=== PATIENT | female | born 1975 | race Caucasian/White ===

== ENCOUNTER 2019-11-21 06:39 | Emergency (ER) | payer OTHER, SELFPAY ==
[2019-11-21 06:40] VITALS: BP 140/84; PULSE 82; RESP 16; TEMP 36.4; O2SAT 97; BMI 36.9
--- NOTE | 2019-11-21 07:12 | RAD_ITS ---
STUDY: X-RAY - PELVIS AND LEFT HIP REASON FOR EXAM: Left hip pain, fell Wednesday. TECHNIQUE: 2 views of the pelvis and hip. COMPARISON: None. FINDINGS: There is a small pelvic phlebolith. There is mild arthrosis of the sacroiliac joints bilaterally. Normal bilateral iliac wings and visualized sacrum. Normal bilateral superior and inferior pubic rami. Normal pubic symphysis. Normal bilateral ischial tuberosities. Normal visualized femoral head. Normal acetabulum. There are marginal osteophytes and moderate joint space narrowing of the hip joint. There is a left os acetabula. RAD/HIP, UNI W/ Pelvis 2-3 Views IMPRESSION: Left hip arthrosis. Mild arthrosis of the sacroiliac joints bilaterally. If symptoms are persistent, an MRI should be considered to evaluate for occult fracture. Electronically Signed: Rashid Sweeney MD at 7:48 EST Tel , Service support ,
--- NOTE | 2019-11-21 07:48 | ED.VISSUMM ---
- ER Visit Summary Date of Service: 11/21/19 Chief Complaint: [Left hip and leg pain] History of Present Illness: The patient is a 44 F [presents to the emergency department complaint of pain in her left hip and leg that started this morning.] Patient states that she did have a fall off of a chair while at work 5 days ago where the chair kind of went [address] she tried to stand up and she fell onto her bottom. At the time she did not think much of it. Today she is having pain with walking. She describes the pain is in her left buttock and, radiates down the back of her leg to about the knee. She denies any numbness or tingling or weakness of the extremity. She denies weakness in the extremity and she denies loss of bowel or bladder function. She denies saddle anesthesia. Patient states that she is had intermittent pain in her left buttock and leg that she just attributed to sciatica in the past. Patient otherwise has no medical history. Physical Examination: [HEENT-PERRLA, EOMI. Cranial nerves II through XII grossly intact. TMs clear. Mucous membranes moist. No adenopathy. Cardiovascular-regular rate and rhythm without murmur or ectopy Lungs-clear to auscultation, chest wall stable without crepitus or subcu emphysema Abdomen-normoactive bowel sounds, soft, nontender, no rebound or rigidity, no peritoneal signs. Back exam-patient has no tenderness over the thoracic or lumbar spine. There is no ecchymosis or bruising noted. Evaluation of the left hip reveals some mild diffuse tenderness over the left hip and left buttock. She has negative straight leg raises. Deep tendon reflexes are plus 2 out of 4 bilaterally at the patella and Achilles. Patient has normal 5 extension bilaterally. Patient has normal sensation to light touch. Extremities-intact ?4, normal range of motion, normal pulses, atraumatic] Test Results: [X-rays of the left hip and pelvis ordered which showed no fractures however she did have some left hip arthrosis and mild arthrosis of the sacroiliac joints bilaterally.] Emergency Department Course and Treatment: [] Treatment Plan: [Patient will be given crutches and a prescription for [place] for pain. Patient advised to follow-up with her primary care physician within next 5 to 7 days. Patient advised to return if worsening pain, weakness in extremity, change in bowel bladder function, or conditions worsen anyway. At this time patient has no red flag symptoms for cauda equina.] Disposition: [Discharged home in stable condition] Impression: [Left hip pain] This note was generated with [employer] dictation software. It may contain incorrect words, spelling, and punctuation that were not noted in review of the chart prior to signing ED Disposition - Plan for ED Patient: Referrals: Naomi El MD [Primary Care Provider] -
--- NOTE | 2019-11-21 07:55 | ED.DEP ---
ED Disposition - Plan for ED Patient: Instructions: Hip Strain Prescriptions: Hydrocodone Bitart/Apap 5-325 [[place] 5MG-325MG] 1 tab PO Q4H PRN PRN 2 Days #14 tab PRN Reason: Pain Prescription Printed Referrals: Naomi El MD [Primary Care Provider] - 5-7 Days
== END 2019-11-21 08:42 | disposition home or self-care (01) ==
PROVIDERS: Emergency Provider Emergency Medicine; PCP Internal Medicine
DX: M16.12 Unilateral primary osteoarthritis, left hip (principal); M25.552 Pain in left hip; Z79.899 Other long term (current) drug therapy
CPT/HCPCS: 73502; 99282

== ENCOUNTER 2020-06-01 18:04 | Emergency (ER) | payer OTHER, SELFPAY ==
[2020-06-01 18:05] VITALS: BP 180/84; PULSE 96; RESP 16; TEMP 37; BMI 57.0
--- NOTE | 2020-06-01 18:53 | ED.VIS.INJ ---
History of Present Illness Chief Complaint: Fall Informant: Patient Onset: Today Mechanism/Context: Fall Quality of Pain: - - sore Location: R thumb Current Severity: Mild Maximum Severity: Moderate Worsened by: Palpation Relieved by: Leaving, Associated Symptoms: Loss of function. Negative for: Parasthesias, Weakness, Inability to ambulate, Loss of consciousness, Amnesia Narrative: Patient accidentally fell through a weekend composite board on the floor of a deck. She scraped her left leg as she was going through, but it does not hurt and she is able to walk without difficulty. The deck was just off the ground and not elevated high. Worst injury is to her right thumb, she tried to break her fall by grabbing something nearby, and it tore a laceration. It was metal. Now she is having trouble bending her thumb. [id number]. Tetanus Immunization: Unknown - Past Medical History (1) Hypertension Status: Chronic Past Medical History - Allergies and Home Meds Allergies/Adverse Reactions: Allergies No Known Allergies Allergy (Verified 11/21/19 06:44) Primary Care Physician: Josse Pastrana MD [STAFF PHYSICIAN] - (call for appt to be seen as soon as able) Lives: With Family Smoking Status: Never smoker Review of Systems General: Denies: Chills, Fever, Sweats Eyes: Denies: Visual changes - bilaterally, Diplopia ENT: Denies: Rhinorrhea, Sore throat Cardiovascular: Denies: Chest pain, Palpitations Respiratory: Denies: Dyspnea, Cough, Dyspnea on exertion Gastrointestinal: Denies: Abdominal pain, Nausea, Vomiting, Diarrhea, Melena, Hematochezia Genitourinary: Denies: Dysuria, Hematuria, Frequency Musculoskeletal: Reports: Extremity Pain. Denies: Back pain Skin: Reports: Abrasions, Wounds. Denies: Rash Neurological: Denies: Headache, Weakness, Numbness Physical Exam Vital Signs/Narrative: Vital Signs Temp Pulse Resp BP 06/01/20 18:05 98.6 F 96 16 180/84 H Inital Vital Signs reviewed: Yes General: Well nourished, Well developed Head: Normocephalic, Atraumatic Eyes: Perrl, EOMI Neck: Nontender, Full ROM Extremeties: Laceration to the IPJ of the right thumb volar aspect. She is not able to flex the distal phalanx. Extensor mechanism intact. No other injuries to the hand. Full range of motion to the left lower extremity without any bony tenderness. Skin: Normal color, Trauma - 2 cm deep irregular laceration to the volar aspect of the right thumb IPJ. No gross contamination. No nail involvement. Superficial abrasions to the left knee, and proximal/distal to this. Neurological: Alert, Oriented x3, Cranial nerves II-XII grossly intact, Normal Strength, Normal Sensation Psychological: Normal affect, Normal Mood - Glascow Coma Scale Eye Opening: Spontaneous Motor: Obeys Commands Verbal: Oriented Coma Scale Total: 15 Diagnostic/Tx/Re-eval Clinical Impression(s) from Imaging Studies Finger X-Ray 06/01/20 19:12 IMPRESSION: Normal x-ray examination of the thumb. Electronically Signed: Alberto Peterson MD at 19:46 EDT , Service support , - Medical Decision Making Patient had a negative x-ray, however clinically she has lacerated her flexor tendon to her thumb as she cannot bend it at all. I explored the wound, I was not able to obviously see the tendon, nor the bone. Just subcutaneous fat/tissue. It was cleansed thoroughly, repaired/closed, and she was placed in a thumb spica splint after dressing with bacitracin. She was given a S[place]fras for her pain, her pain was controlled well after we anesthetized it with lidocaine with epinephrine. I discussed with Dr. Pastrana who is happy to see her in follow-up after the weekend. She was given a prescription for prophylactic antibiotics in addition to some Sassafras. Laceration R thumb Length: 3 cm Depth: Tendon Shape: irregular Prep: Sterile Conditions, Chlorhexadine Laceration Repair: Sutures - 3cc local Irrigated (ml): 100 Number of Sutures/Adrianna: 7 Stitch Description: Ethilon, Simple, 4-0 ED Disposition - Plan for ED Patient: Disposition: Home or Assisted Living Diagnosis: Laceration of right thumb, Flexor tendon laceration of right hand with open wound Instructions: ED Laceration Hand, ED TENDON LACERATION Prescriptions: Cephalexin [Keflex] 500 mg PO TID #15 cap Prescription Printed Hydrocodone Bitart/Apap 5-325 [[place] 5MG-325MG] 1 tab PO Q4H PRN PRN 2 Days #10 tab PRN Reason: Pain Prescription Printed Referrals: Josse Pastrana MD [STAFF PHYSICIAN] - (call for appt to be seen as soon as able)
[2020-06-01] MEDS: Lidocaine/Epi/Tetracaine 50 ML 1 APPLIC TOPICAL (19:09)
[2020-06-01] MEDS: Diphth,Pertuss(Acell),Tet Vac 0.5 ML Vial IM (19:09)
--- NOTE | 2020-06-01 19:12 | RAD_ITS ---
STUDY: X-RAY - RIGHT HAND, ATTENTION FIRST FINGER REASON FOR EXAM: Female, 44 years old. fall, laceration of first digit TECHNIQUE: 3 view(s) of the finger were obtained. COMPARISON: None. FINDINGS: Normal metacarpal head. Normal metacarpophalangeal joint. Normal proximal phalanx. Normal distal phalanx. Normal interphalangeal joint. No fractures. No foreign bodies. RAD/Finger(s) Min 2 Views IMPRESSION: Normal x-ray examination of the thumb. Electronically Signed: Alberto Peterson MD at 19:46 EDT , Service support ,
[2020-06-01 20:58] VITALS: RESP 16
[2020-06-01] MEDS: HYDROcodone Bitartrate/Apap 5/325 Tablet PO (21:57)
[2020-06-01 22:02] VITALS: RESP 14
[2020-06-01 23:11] VITALS: PULSE 80; RESP 16; O2SAT 98
== END 2020-06-01 23:12 | disposition home or self-care (01) ==
PROVIDERS: Emergency Provider Emergency Medicine; PCP Internal Medicine
DX: S61.011A Laceration without foreign body of right thumb without damage to nail, initial encounter (principal); S80.212A Abrasion, left knee, initial encounter; W13.3XXA Fall through floor, initial encounter; Y93.9 Activity, unspecified; Y92.9 Unspecified place or not applicable; Y99.9 Unspecified external cause status; I10 Essential (primary) hypertension; Z79.899 Other long term (current) drug therapy
CPT/HCPCS: 12001; 73140; 90715; 99285

== ENCOUNTER 2020-06-04 05:51 | Day surgery (SDC) | payer OTHER, SELFPAY ==
[2020-06-04] VITALS (7 sets, daily range): BP systolic 113–131; BP diastolic 62–73; PULSE 78–85; RESP 16–18; TEMP 36.3–37; O2SAT 95–99; BMI 56.7
--- NOTE | 2020-06-04 00:12 | HP.PCM_ITS ---
History and Physical Date of Admission: 06/04/20 HISTORY OF PRESENT ILLNESS 44 year old woman was visiting family on Wednesday06/01/20 when she fell through the floor of the deck. She tried to break her fall and grabbed a piece of metal which lacerated her right thumb. She had trouble bending her right thumb and went to the ED for evaluation. She is right hand dominant. She also noted decreased sensation on the distal volar aspect of her right thumb. In the ED her wound was cleansed and suture repaired and a thumb spica splint applied. She was unable to flex her right thumb at the IP joint. X-ray was done which showed no fracture and no foreign body. She was discharged on Keflex and [place]. She presents today to discuss surgical options for treatment for her flexor tendon injury right thumb. PAST MEDICAL HISTORY Injury of digital nerve of right thumb, initial encounter Laceration of long flexor muscle, fascia and tendon of right thumb at wrist and hand level, initial encounter Laceration of right thumb with tendon involvement Fall as cause of accidental injury at home as place of occurrence High blood pressure PAST SURGICAL HISTORY 2 sections ALLERGIES No Known Allergies MEDICATIONS Hydrochlorothiazide [Hctz] Lisinopril [Zestril] Metoprolol Succinate Cephalexin [Keflex] FAMILY HISTORY Father - Hypertension CVA (cerebral vascular accident) Mother - Hypertension SOCIAL HISTORY Smoking Status: Never smoker alcohol intake: never substance use type: does not use REVIEW OF SYSTEMS General - Denies fever, fatigue, and weight loss. Eyes - Denies cataracts and glaucoma. ENT - Denies nasal congestion and sore throat. Endocrine - Denies excessive thirst and urination. Skin - Denies suspicious lesions and skin cancer. Musculoskeletal - Denies joint pain, joint stiffness, weakness of muscles and joints, back pain, and arthritis. Patient is right hand dominant. Has laceration volar surface right thumb just proximal to IP joint crease (zone 2). Neuro - Denies headaches. Has paresthesias distal volar aspect right thumb. Cardiovascular - Denies chest pain, fatigue, and shortness of breath with exertion. History of hypertension. Psych - Denies anxiety and depression. Respiratory - Denies chronic cough and shortness of breath. Gastrointestinal - Denies nausea, vomiting, diarrhea, and constipation. Hematologic - Denies abnormal bruising and bleeding. Genitourinary - Denies hematuria and urinary frequency. Had 2 c-sections. PHYSICAL EXAMINATION General - Alert and oriented. HEENT - PERRL. EOMI. Throat is clear. Neck - Supple and non-tender. No cervical adenopathy. Lungs- Clear to auscultation. Heart - Regular rate and rhythm. Abdomen - Soft and non distended. Extremities - FROM left upper extremity. No axillary adenopathy. Radial pulses are palpable. She is right hand dominant. On the right thumb on the volar aspect just proximal to the IP joint crease is a 3 cm horizontal laceration (zone 2). She is not able to flex her thumb at the IP joint. She has decreased sensation to pin prick distal to the laceration. Sutures are dry and intact. Mild swelling present. Fingers are warm with good capillary refill. No axillary adenopathy. Neuro - CN II-XII grossly intact. Psych - Normal mood and affect. ASSESSMENT 1. 3 cm horizontal laceration volar aspect right thumb just proximal to IP joint crease (zone 2) with flexor pollicis longus (FPL) tendon injury. 2. Paresthesias distal volar aspect right thumb, probable digital nerve injuries. 3. Fall at home. PLAN X-ray reviewed. No fracture seen. No foreign body seen. Patient has laceration volar aspect right thumb just proximal to IP joint crease (zone 2) with inability to flex her right thumb at the IP joint. Clinically she has an injury to her flexor pollicis longus (FPL) tendon. She also has paresthesias on the distal volar aspect suggestive of injury to the digital nerves which travel in the area of the laceration. Recommend operative intervention with exploration of this traumatic laceration (zone 2) and repair of the FPL tendon injury. Will dissect out the digital nerves and proceed with epineural repair of any digital nerve injury. In order to get exposure, will proceed with extension of the laceration in a zig zag fashion both proximally and distally. Sometimes the FPL tendon can retract proximally toward the wrist. May have to obtain exposure through a separate incision in the distal forearm/wrist area. Will avoid a zig zag incision in the thenar eminence to minimize injury to the motor nerve branch of the median nerve and also because the tendon is deep to the thenar muscles. Because of the location of the injury just proximal to the IP joint crease, if there is an injury to the oblique jennifer, it may need repair as well. Surgery will be done on an outpatient basis under general anesthesia and tourniquet control. After surgery, will apply a thumb spica splint. She will followup with OT for a silastic splint and begin limited early range of motion protocol to minimize adhesions. Surgery is scheduled for tomorrow morning. Patient was informed of the risks and complications of the procedure including alternatives to surgery. These were discussed with the patient personally. Patient voices understanding and wishes to proceed. Some of the risks and complications were included in a form from the [employer]. We discussed the current risks associated with COVID-19. While it is understood that there is a community spread of COVID-19, the risk of rod COVID-19 while at [facility] ([facility]) is very low; however, the risk cannot be completely mitigated because of the community spread of the disease. We discussed in detail the risk of exposure to and/or potential harm posed by the COVID-19 virus with having a surgery/procedure at this time versus the risk of delaying the surgery/procedure. It is not possible to know either the risk of delaying the surgery or procedure or chance of getting an infection with perfect accuracy, but a joint decision was made to proceed at this time with the scheduled surgery/procedure as indicated on the consent form. Patient was notified that we will need to comply with any screening or testing [facility] wishes to perform or that surgery may be delayed for any positive results. Discussed with the patient that I was tested for COVID-19 on 04/18/20 which was negative and on 05/02/20 which was negative and on 05/16/20 which was negative and on 05/30/20 which was negative. My testing regimen at this time is to be COVID-19 tested every 2 weeks or so. Procedure Criteria Procedure Type: Elective COVID Risk Discussion: The surgeon/proceduralist and patient have discussed in detail the risk of exposure to and/or potential harm posed by the COVID-19 virus with having a surgery/procedure at this time versus the risk of delaying the surgery/procedure. It is not possible to know either the risk of delaying the surgery or procedure or chance of getting an infection with perfect accuracy, but a joint decision was made between the patient and the surgeon/proceduralist to proceed at this time with the scheduled surgery/procedure as indicated on the consent form.
[2020-06-04 06:12] LABS: Internal QC Validated? YES +Cl - CLEAR BKGD; Pregnancy, Urine Negative Negative
[2020-06-04] MEDS: Lactated Ringers 1,000 ML 100 ML IV ×2 (06:33→10:00)
[2020-06-04] MEDS: Cefazolin 2 GM in 0.9% Normal Saline 100 ML IV (07:50)
--- NOTE | 2020-06-04 10:26 | OP.PCM_ITS ---
Report of Operation Date of Procedure: 06/04/20 Pre-Operative Diagnosis: 1. 3 cm horizontal laceration volar aspect right thumb just proximal to IP joint crease (zone 2) with flexor pollicis longus (FPL) tendon injury. 2. Paresthesias distal volar aspect right thumb, probable digital nerve injuries. 3. Fall at home. Post-Operative Diagnosis: 1. Flexor pollicis longus (FPL) tendon laceration right thumb (zone 2). 2. Volar plate laceration IP joint right thumb. 3. Ulnar digital nerve laceration right thumb. Surgery/Procedure Performed:: 1. Repair flexor pollicis longus (FPL) tendon laceration right thumb (zone 2). 2. Repair volar plate laceration IP joint right thumb. 3. Epineural repair ulnar digital nerve laceration right thumb. Description of Surgical Findings:: 44 year old woman was visiting family on Wednesday06/01/20 when she fell through the floor of the deck. She tried to break her fall and grabbed a piece of metal which lacerated her right thumb. She had trouble bending her right thumb and went to the ED for evaluation. She is right hand dominant. She also noted decreased sensation on the distal volar aspect of her right thumb. In the ED her wound was cleansed and suture repaired and a thumb spica splint applied. She was unable to flex her right thumb at the IP joint. X-ray was done which showed no fracture and no foreign body. She was discharged on Keflex and [place]. She presents today to discuss surgical options for treatment for her flexor tendon injury right thumb. Patient was informed of the risks and complications of the procedure including alternatives to surgery. These were discussed with the patient personally. Patient voices understanding and wishes to proceed. Some of the risks and complications were included in a form from the [place] [employer]. Some of the risks and complications that were discussed included but were not inclusive of failure to diagnose including symptom relief, pain, infection, numbness, stiffness, loss of digit, RSD (CRPS), need for further surgery, contracture, and wound healing problems. Total tourniquet time - 113 minutes. The flexor pollicis longus (FPL) tendon was lacerated and retracted into the wrist. The ulnar digital nerve right thumb was lacerated. The volar plate at IP joint right thumb was lacerated. cancer genetic counselor: None Type of Anesthesia:: General Specimen's removed: None. Drains: none. Estimated Blood Loss (mL): 5 ml. Description of Procedure: Patient was taken to OR in supine position and was placed under general anesthesia. The right upper extremity was prepped and draped in the usual fashion. SCD's were placed for DVT prophylaxis. Perioperative antibiotics were given intravenously. For the procedure, I wore an N95 mask and wore proper eyewear protection. Using xylocaine with epinephrine, a digital metacarpal block was administered for postoperative pain relief. After waiting 5 minutes for the anesthetic to take effect, the right upper extremity was elevated and wrapped with an Esmarch bandage. The tourniquet was elevated to 250 mmHg. Under loupe magnification, I made zig zag incisions both proximally and distally. Dissection was carried down to the tendon sheath. The radial digital nerve was dissected free and was intact and preserved. The ulnar digital nerve was dissected free and a complete laceration was noted that will be repaired. A laceration was noted on the volar plate at the IP joint. About 2/3 of the volar plate was lacerated and it was repaired to minimize laxity in the joint. I used 3-0 Vicryl figure of eight interrupted sutures for the volar plate repair. I then evaluated the flexor tendon to the thumb. There was complete laceration of the flexor pollicis longus (FPL) tendon. I could not locate the proximal end of the tendon in the thumb area. I made a separate horizontal incision on the volar radial aspect distal forearm/wrist area at the level of the flexor carpi radialis (FCR) tendon. When I located the FCR tendon, I retracted the tendon radially and this exposed the FPL tendon located deeper to the FCR. By staying on the ulnar side of the FCR, this minimized injury to the radial artery and to the palmar sensory branch of median nerve. When I located the proximal end of the FPL tendon, I placed a tendon passer into the tendon sheath in the proximal thumb and was able to bring it out at the wrist level so I could connect the proximal end of the FPL tendon to the tendon passer so it would pass distally through the tendon sheath. When I brought it out into the thumb wound, I carefully passed it through the A1, Oblique, and A2 pulleys up to the distal end. A 25 gauge needle was used to keep the proximal end of the tendon from retracting proximally back toward the wrist. The FPL tendon was repaired with 4-0 Nylon suture using Modified Cordero technique. This was followed by 6-0 Prolene simple running epitendinous suture. After the tendon was repaired, I then repaired the ulnar digital nerve injury. I used microscopic instruments. I used an epineural repair with 8-0 Nylon simple interrupted sutures. I used 8 sutures. The wound was irrigated with saline. The tourniquet was released after 113 minutes. Hemostasis was obtained with gentle pressure and some light electrocautery. The zig zag incisions were closed in a layered fashion with 5-0 Monocryl interrupted sutures for the deep dermis and subcutaneous tissue. The skin was approximated with 5-0 Prolene simple and vertical mattress sutures. No vascular compromise was noted on the skin flaps. After skin closure, I placed antibiotic ointment on the suture line followed by Xeroform gauze and a 2 inch Whitney wap and followed by a thumb spica plaster splint with the thumb abducted and slightly flexed. A compression juan antonio wrap was then applied. Patient tolerated the procedure well and was sent to PACU in satisfactory condition. Patient will be sent home on antibiotics and pain medication and Neurontin for the nerve injury. She will keep her right hand elevated during the initial postoperative period. Patient will followup in a week for a wound check. Will set her up with OT for a silastic splint and after healing, proceed with range of motion exercises, strengthening, and edema management. The sutures will be removed in 2-3 weeks. Grafts/Implants Used: None. - Complications None. - Admit VTE Documentation VTE Present on Admission: No VTE Mechan Device Prophylaxis: SCD's VTE Pharm Prophylaxis ordered?: No Surgery Charges CPT - 81064 ICD-10 - S66.021A, S61.011A, W19.xxxA 09569 S63.438A, S61.011A, W19.xxxA 28128 S64.31xA, S61.011A, W19.xxxA
--- NOTE | 2020-06-04 10:35 | PCM.DC ---
You will use the following diet at home:: No restrictions Discharge Activity: May not drive while taking narcotic pain medications., May Shower - in one day. place plastic bag over right hand when showering., - - elevate right hand. no lifting with right hand. May shower in (days): 1 - wear plastic bag over right hand when showering. May resume sexual activity in: No Restrictions Weight Bearing Status: Weight bearing as tolerated Lifting Restrictions: no lifting with right hand. Keep extremity elevated above heart level: Right Arm Call your doctor if your incision/area has: Continuous Slow Oozing, Sudden Increased Bleeding, Increased Pain/ Swelling, Increased Redness, Foul Smelling Discharge, Swelling at the incision site Call your doctor if you observe: Fever of 101 or Higher, Coldness, Increased Pain, Shortness of breath, Chest pain, Calf discomfort, Uncontrolled pain Suture Line Care: - - after operative dressing removed in office, apply antibiotic ointment to suture line daily. Change Dressing in (Days):: 7 - will change operative dressing in office. Cleanse incision/area with: - - werart plastic bag over right hand when showering. Allergies/Adverse Reactions: Allergies No Known Allergies Allergy (Verified 06/03/20 16:06) Medications to take at Discharge Hydrochlorothiazide [Hctz] 25 mg PO DAILY 11/21/19 Lisinopril [Zestril] 10 mg PO DAILY 11/21/19 Metoprolol Succinate 50 mg PO DAILY 11/21/19 Cephalexin [Keflex] 500 mg PO TID #15 cap 06/04/20 Gabapentin [Neurontin] 300 mg PO BIDCM #60 cap 06/04/20 Oxycodone HCl/Acetaminophen [Percocet 5/325] 1 tablet PO Q4H PRN PRN 7 Days #40 tablet 06/04/20 The following prescriptions were given: Cephalexin [Keflex] 500 mg PO TID #15 cap Transmission Status: Pending to [facility]/pharmacy #[id number] Gabapentin [Neurontin] 300 mg PO BIDCM #60 cap Transmission Status: Pending to [facility]/pharmacy #[id number] Oxycodone HCl/Acetaminophen [Percocet 5/325] 1 tablet PO Q4H PRN PRN 7 Days #40 tablet PRN Reason: Pain Score 6-10/10 Transmission Status: Received by [facility]/pharmacy #[id number] Primary Care Physician: Naomi El MD [Primary Care Provider] - Test Results: Test results from this visit will be discussed in further detail at your follow-up appointment, if applicable. Please Follow Up With: Josse Pastrana MD When: one week. call [phone] for appt. Please Follow Up With: occupational therapy - after healing has occurred, range of motion exercises, strengthening, and edema management. When: one week. evaluate and treat for silastic splint Proposed Discharge Date: 06/04/20
[2020-06-04] MEDS: Acetaminophen 325 MG Tablet 650 MG PO (12:13)
== END 2020-06-04 12:22 | disposition home or self-care (01) ==
LOC: SDC 05:51 → AC 05:52
PROVIDERS: Anesthesiology; PCP Internal Medicine; Referring Provider Surgery; Visit Provider Surgery
PROC: (CPT 26356; principal; 2020-06-04 07:15)
DX: S66.021A Laceration of long flexor muscle, fascia and tendon of right thumb at wrist and hand level, initial encounter (principal); S63.438A Traumatic rupture of volar plate of other finger at metacarpophalangeal and interphalangeal joint, initial encounter; S64.31XA Injury of digital nerve of right thumb, initial encounter; S61.011A Laceration without foreign body of right thumb without damage to nail, initial encounter; W13.3XXA Fall through floor, initial encounter; Y93.9 Activity, unspecified; Y92.008 Other place in unspecified non-institutional (private) residence as the place of occurrence of the external cause; Y99.9 Unspecified external cause status; I10 Essential (primary) hypertension; E66.01 Morbid (severe) obesity due to excess calories; Z68.43 Body mass index [BMI] 50.0-59.9, adult; Z79.899 Other long term (current) drug therapy
CPT/HCPCS: 01810; 26356; 26548; 64831; 81025; J7120; J2405

== ENCOUNTER 2020-08-13 10:00 | Outpatient (RCR) | payer OTHER, SELFPAY ==
[2020-06-12 08:57] VITALS: BMI 56.7
--- NOTE | 2020-06-18 08:46 | HP.OTEVAL_ITS ---
Patient's Visit Information SAM MAJANO is a 44 year old F, referred to Occupational Therapy by Dr. Josse Pastrana MD, with a diagnosis of . Date of Evaluation: 06/17/20 Occupational Therapist: Ani Quintero, JAER/Peter, CHT - Subjective This 44 year old female was seen for OT eval with dx of FPL tendon laceration with digital nerve of right thumb laceration and bolar plate injury. Pt has fall on 06/01/20 fall and went to grab a stanless steel top of a table- lacerating her thumb. Pt had sx 06/04/20. 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 - Pain right hand 2 Pain Intensity Range: 0, 4 - ROM CMC: right NT left 15 MP: right NT left 50 IP: right NT left 65 Radial Abduction: right NT left WNL Palmar Abduction: right NT left 45 - Strength Digital Service Engineer: right NT left 55# Lateral Pinch: right NT left 20# Tripod Pinch: right NT left 20# Strength Comments: right will be tested at week 8-10 based on objective measurments - Sensation Thumb: right 3.84 left 2.83 Sensation Comments: right deminished thumb - Quick DASH-Disab of Arm,Shoulder& Hand Quick DASH Score: 53.3325 - Goals Goal:100% adherence to protocol: Yes Comment: FPL protocol holing on motion for nerve repair 4 weeks Goal:Daily scar massage when approriate: Yes Goal:ROM equal to unaffected hand: Yes Goal:Digital Service Engineer/Pinch strength at least 75% of unaffected hand: Yes Goal:No pain with affected hand use: Yes Goal:Full use of affected hand in daily activities including: Yes Goal:Improvement in sensation documented by [place]: Yes Goal:Decrease scar hypersensitivity: Yes - Rehabilitation General Assessment: pt is s/p 1 week 6 days - Flexor pollicis longus (FPL) tendon laceration right thumb (zone 2). 2. Volar plate laceration IP joint right thumb. 3. Ulnar digital nerve laceration right thumb. Due to repair of tendon pt limited with fuctional use of right hand with ADLs and IADLS and would benefit from skilled OT services 1-2x week for 8 weeks to assist pt in return of functional use of right hand with ADLS and IADLS. Today therapsit julio. custom orthosis ed. on use and precautions- ed. pt that with nerve repair will hold off on ROM for 4 weeks from sx- but therapist ed. pt on initiation of scar mtg and sensory re ed- pt demo understanding and agree to POC - therapist will progress pt as able per FPL tendon protocol Rehabilitation Potential: Good - Anticipated Interventions A/AAROM/PROM, Strengthening, Edema Control, Scar Care, Desensitization, Sensory Retraining, Modalities, Orthoses, Fine Motor Coord/French, Sensory Stimulation - Visit Plan Frequency: 1-2x /Week Duration: 2 Months TEXT: Thank you for the opportunity to evaluate your patient. For Medicare and Medicare HMO plans, please review the plan of care and approve it. It will need to be FAXED BACK to us at [phone] for Medicare purposes. Please let me know if there are questions or concerns regarding this plan of care. Physician Signature: Date:
--- NOTE | 2020-08-20 07:23 | HP.OT.NRP ---
SAM MAJANO was seen in my office for initial evaluation on 06/17/20. The following Plan of Care was established for this patient: pt was seen for OT following a flexor tendon repair. was making good gains in ROM and use of right hand with daily task. pt has been ed. on scar mtg and ROM ex. and demo good understanding of ex. pt has finally stopped using her orthosis and has noticed she has more function. However due to work schedule pt has cancelled remaining visits. Pt will cont with HEP and return to [facility] if there is a concern. Plan: initiate strengthening- watch for thumb collapse with pinch. cont with HEP Anticipated Interventions: A/AAROM/PROM, Strengthening, Edema Control, Scar Care, Desensitization, Sensory Retraining, Modalities, Orthoses, Fine Motor Coord/French, Sensory Stimulation This patient was last seen in our office . Pertinent comments regarding their Occupational therapy will appear below: At this point I will be discontinuing this patient from occupational therapy. I would be happy to see this patient again in the future if found appropriate by the physician. Thank you! Ani Quintero, OTR/L, CHT
== END 2020-08-13 19:00 | disposition home or self-care (01) ==
LOC: OT 10:00
PROVIDERS: PCP Internal Medicine; Referring Provider Surgery; Visit Provider Surgery
DX: S66.021D Laceration of long flexor muscle, fascia and tendon of right thumb at wrist and hand level, subsequent encounter (principal); S64 Injury of nerves at wrist and hand level; S61.011D Laceration without foreign body of right thumb without damage to nail, subsequent encounter; S63.43 Traumatic rupture of volar plate of finger at metacarpophalangeal and interphalangeal joint; W19.XXXD Unspecified fall, subsequent encounter; Y92.009 Unspecified place in unspecified non-institutional (private) residence as the place of occurrence of the external cause
CPT/HCPCS: 97035; 97110; 97140; 97166; 97530; 97760; 97763